=== PATIENT | female | born 1935 | race Caucasian/White ===

== ENCOUNTER 2019-10-29 17:04 | Emergency (ER) | payer MEDICARE, OTHER ==
[2019-10-29 18:10] LABS: ALBUMIN 3.8 g/dL (3.5-5.0); ALKALINE PHOSPHATASE 66 U/L (38-126); ANION GAP 6 (5-19); ASPARTATE AMINO TRANSFERASE 36 U/L (14-36); BILIRUBIN,TOTAL 0.7 mg/dL (0.2-1.3); BLOOD UREA NITROGEN 38 mg/dL (7-20); CALCIUM 9.8 mg/dL (8.4-10.2); CARBON DIOXIDE 37 mmol/L (22-30); CHLORIDE 96 mmol/L (98-107); CREATINE KINASE 22 U/L (30-135); GLUCOSE 89 mg/dL (75-110); POTASSIUM 4.5 mmol/L (3.6-5.0); TOTAL PROTEIN 6.5 g/dL (6.3-8.2)
[2019-10-29 18:23] LABS: ABSOLUTE EOSINOPHILS # (AUTO) 0.4 10^3/uL (0.0-0.6); ABSOLUTE LYMPHOCYTES (AUTO) 2.4 10^3/uL (0.5-4.7); ABSOLUTE MONOCYTES (AUTO) 0.4 10^3/uL (0.1-1.4); ABSOLUTE NEUT (AUTO) 4.9 10^3/uL (1.7-8.2); BASOPHILS % (AUTO) 0.6 % (0-2); EOSINOPHILS % (AUTO) 5.4 % (0-6); HEMATOCRIT 44.5 % (36.0-47.0); HEMOGLOBIN 14.5 g/dL (12.0-15.5); LYMPHOCYTES % (AUTO) 29.5 % (13-45); MEAN CORPUSCULAR HEMOGLOBIN 31.8 pg (27.0-33.4); MEAN CORPUSCULAR HGB CONC 32.7 g/dL (32.0-36.0); MEAN CORPUSCULAR VOLUME 97 fl (80-97); MONOCYTES % (AUTO) 5.2 % (3-13); PLATELET COUNT 238 10^3/uL (150-450); RED BLOOD COUNT 4.57 10^6/uL (3.72-5.28); RED CELL DISTRIBUTION WIDTH 15.1 % (11.5-14.0); SEGMENTED NEUTROPHILS % (AUTO) 59.3 % (42-78); TOTAL CELLS COUNTED % (AUTO) 100 %; WHITE BLOOD COUNT 8.2 10^3/uL (4.0-10.5)
--- NOTE | 2019-10-29 18:24 | EKG REPORT ---
SEVERITY:- ABNORMAL ECG - PROBABLE ATRIAL FIBRILLATION, V-RATE 88-117 LOW VOLTAGE THROUGHOUT CONSIDER ANTERIOR INFARCT : Confirmed by: Roshan Medina MD 29-Oct-2019 18:23:41
[2019-10-29 18:28] LABS: CREATINE KINASE MB 0.94 ng/mL (<4.55); TROPONIN I < 0.012 ng/mL
--- NOTE | 2019-10-29 18:36 | RADIOLOGY REPORT (SQ) ---
EXAM DESCRIPTION: CHEST SINGLE VIEW IMAGES COMPLETED DATE/TIME: 10/29/2019 5:06 pm REASON FOR STUDY: sob COMPARISON: None. EXAM PARAMETERS: NUMBER OF VIEWS: One view. TECHNIQUE: Single frontal radiographic view of the chest acquired. RADIATION DOSE: NA LIMITATIONS: None. FINDINGS: LUNGS AND PLEURA: Lungs are hyperinflated. No focal consolidation or pleural effusion. N o pneumothorax. MEDIASTINUM AND HILAR STRUCTURES: No masses. Contour normal. HEART AND VASCULAR STRUCTURES: Moderate cardiomegaly. No pulmonary vascular congestion. BONES: Chronic healed left clavicle rib fracture. Osteoarthritis bilateral shoulders. HARDWARE: None in the chest. OTHER: No other significant finding. IMPRESSION: 1. No acute cardiopulmonary disease. 2. Hyperinflated lungs which can be seen with obstructive lung disease. TECHNICAL DOCUMENTATION: JOB ID: [id number] 2010 [employer]- All Rights Reserved Reading location - IP/workstation name: [email or web address]
--- NOTE | 2019-10-29 21:14 | ER Document Report ---
ED General - General Chief Complaint: Shortness Of Breath Stated Complaint: SHORTNESS OF BREATH Time Seen by Provider: 10/29/19 21:06 Primary Care Provider: ELVIA TAMEZ MD [Primary Care Provider] - Follow up as needed Information source: Relative - Daughter Irina advises patient was on more than 1 pill of Lasix per day and this was increased to 2 and then recently was dropped back. The patient's BNP today is around 1000. Notes: 10/29/19 19:20 (created 10/29/19 21:09) - ED Nursing Note by SRIKANTH YOU Acct Num: [id number] : 1935 Patient Age: 84 Pt resting in stretcher, breaths even and unlabored on NC. Pt's daughter at bedside. Laba t bedside for re-draw. Pt has no needs or complaints at this time. Will continue to monitor 10/29/19 17:10 (created 10/29/19 18:01) - ED Nursing Note by MALAIKA XIONG Acct Num: [id number] : 1935 Patient Age: 84 Patient presents to the ED sent from [facility] for rule out of a PE. Patient reports she was discharged from [facility] Saturday for Shingles, UTI, and shortness of breath. Patient was following up at [facility] to evaluate for home oxygen usage. At appointment, Patient attempted to do a 6 minute walk multiple times and she had increased heart rate and decreased oxygen saturation with movement. Patient oxygen saturation got as low as the 60s per EMS. Upon EMS arrival, patient was noted to have blue hands and feet. Patient was placed on 4L NC O2 and sats improved to 94% for EMS. Upon arrival patient's oxygen saturation was 100%. Patient states she does have a history of COPD, AFib and HTN. Patient denies any pain at this time. Patient states home health came yesterday and she was having difficulty breathing then as well. Patient is alert and orientedx4, speaking in clear and complete sentences with no signs of distress noted at this time. my notes 84-year-old female arrives with chief complaint of shortness of breath with walking. She has STEWART. She reports her mother and father smoked when she was younger and her smoked for 20 years before he got leukemia. She however has never smoked or been a bariatric surgeon or had any lung injury. Patient was sent here by [facility] to rule out PE. CTA scan was read as negative around 2300 TRAVEL OUTSIDE OF THE [place] IN LAST 30 DAYS: No - HPI Onset: Just prior to arrival Onset/Duration: Sudden Quality of pain: No pain Severity: None Pain Level: Denies Associated symptoms: Shortness of breath Exacerbated by: Denies Relieved by: Denies Similar symptoms previously: No Recently seen / treated by doctor: No - Related Data Allergies/Adverse Reactions: codeine Allergy (Verified 10/29/19 17:31) Sulfa (Sulfonamide Antibiotics) Allergy (Verified 10/29/19 17:31) Past Medical History - Social History Smoking Status: Never Smoker Cigarette use (# per day): No Chew tobacco use (# tins/day): No Smoking Education Provided: No Frequency of alcohol use: Rare Drug Abuse: None Lives with: Family - Patient with daughter Irina Family History: Reviewed & Not Pertinent Patient has suicidal ideation: No Patient has homicidal ideation: No - Past Medical History Cardiac Medical History: Reports: Hx Atrial Fibrillation, Hx Hypertension Pulmonary Medical History: Reports: Hx COPD Past Surgical History: Reports: Hx Appendectomy, Hx Cholecystectomy, Hx Ge nitourinary Surgery - hysterectomy, Hx Orthopedic Surgery - neck, back, right hip Review of Systems - Review of Systems Constitutional: See HPI, Weakness, Other - Patient feels cold all the time and her hands and feet. This history is from daughter who is in the room. EENT: No symptoms reported Cardiovascular: No symptoms reported Respiratory: See HPI, Other - stewart Gastrointestinal: No symptoms reported Genitourinary: No symptoms reported Female Genitourinary: No symptoms reported Musculoskeletal: No symptoms reported Skin: No symptoms reported Hematologic/Lymphatic: No symptoms reported Neurological/Psychological: No symptoms reported Physical Exam - Vital signs Vitals: BP 108/70 10/29/19 17:21 Interpretation: Normal - General General appearance: Appears well - HEENT Head: Normocephalic, Atraumatic Eyes: Normal Pupils: PERRL Sinus: Normal Nasal: Normal Mouth/Lips: Normal Mucous membranes: Normal Pharynx: Normal Neck: Normal - Respiratory Respiratory status: No respiratory distress Chest status: Nontender Breath sounds: Normal Chest palpation: Normal - Cardiovascular Rhythm: Regular Heart sounds: Normal auscultation Murmur: No - Abdominal Inspection: Normal Distension: No distension Bowel sounds: Normal Tenderness: Nontender Organomegaly: No organomegaly - Rectal Hemorrhoids: Other - deferred - Genitourinary Bimanuel exam: Other - deferred - Back Back: Normal - Extremities General upper extremity: Normal inspection, Other - Full radial pulses full capillary refill less than 2 seconds General lower extremity: Normal inspection, Other - Positive sensation and capillary refill and positive dorsalis pedis but cool to touch and therefore patient has socks on - Neurological Neuro grossly intact: Yes Cognition: Normal Orientation: AAOx4 Chauvin Coma Scale Eye Opening: Spontaneous Nando Coma Scale Verbal: Oriented Chauvin Coma Scale Motor: Obeys Commands Chauvin Coma Scale Total: 15 Speech: Normal Motor strength normal: LUE, RUE, LLE, RLE Sensory: Normal - Psychological Associated symptoms: Normal affect - Skin Skin Temperature: Warm Skin Moisture: Dry Course - Vital Signs Vital signs: Temp Pulse Resp BP Pulse Ox 97.9 F 16 113/82 100 10/29/19 20:30 10/29/19 23:01 10/29/19 23:01 10/29/19 23:01 - Laboratory Result Diagrams: 10/29/19 17:25 10/29/19 17:25 Laboratory results interpreted by me: 10/29/19 10/29/19 10/29/19 17:25 17:25 17:25 RDW 15.1 H Chloride 96 L Carbon Dioxide 37 H BUN 38 H Est GFR ( Amer) 58 L Est GFR (MDRD) Non-Af 48 L Creatine Kinase 22 L NT-Pro-B Natriuret Pep 1090 H Urine Ascorbic Acid 10/29/19 22:10 RDW Chloride Carbon Dioxide BUN Est GFR ( Amer) Est GFR (MDRD) Non-Af Creatine Kinase NT-Pro-B Natriuret Pep Urine Ascorbic Acid 40 H - Diagnostic Test Radiology reviewed: Reports reviewed Discharge - Discharge Clinical Impression: STEWART (dyspnea on exertion) COPD (chronic obstructive pulmonary disease) Qualifiers: COPD type: unspecified COPD Qualified Code(s): J44.9 - Chronic obstructive pulm onary disease, unspecified CHF (congestive heart failure) Qualifiers: Heart failure type: unspecified Heart failure chronicity: acute Qualified Code(s): I50.9 - Heart failure, unspecified Condition: Good Disposition: HOME, SELF-CARE Additional Instructions: Follow-up with pulmonology as planned return to ER as needed take medicines as directed. Try to take one half B complex vitamin pill daily with meal in order to increase niacin and warm your hands and feet up. They may help you with your breathing as well. We will try also Zaroxolyn 2.5 mg tablets daily for 3 days. Continue with your Lasix. Prescriptions: Metolazone [Zaroxolyn 2.5 Mg Tablet] 2.5 mg PO DAILY #3 tablet Referrals: ELVIA TAMEZ MD [Primary Care Provider] - Follow up as needed
[2019-10-29 22:28] LABS: APPEARANCE,URINE CLEAR; BILIRUBIN,URINE NEGATIVE (NEGATIVE); COLOR,URINE YELLOW; GLUCOSE, URINE NEGATIVE (NEGATIVE); KETONES,URINE NEGATIVE (NEGATIVE); LEUKOCYTE ESTERASE,URINE NEGATIVE (NEGATIVE); NITRITE,URINE NEGATIVE (NEGATIVE); PROTEIN,URINE NEGATIVE (NEGATIVE); URINE SPECIFIC GRAVITY 1.016; UROBILINOGEN,URINE NEGATIVE mg/dL (<2.0)
--- NOTE | 2019-10-29 23:19 | RADIOLOGY REPORT (SQ) ---
CT CHEST ANGIOGRAPHY WITHOUT THEN WITH IV CONTRAST HISTORY: Shortness of breath. COMPARISON: None. TECHNIQUE: CT angiogram of the chest with IV contrast. 3-D MIP images were obtained in coronal and sagittal reconstructions. This exam was performed according to our departmental dose-optimization program, which includes automated exposure control, adjustment of the mA and/or kV according to patient size and/or use of iterative reconstruction technique. FINDINGS: No filling defects are identified in the pulmonary trunk, main left and right pulmonary arteries, or the segmental branches. The thyroid gland is normal. No mediastinal or hilar adenopathy. The heart size is normal without pericardial effusion. The thoracic aorta is normal caliber. No consolidation, pleural effusion, or pneumothorax is identified. There is mild atelectasis in the posterior lung bases. The visualized upper abdomen demonstrates no acute findings. No acute osseous findings are seen. IMPRESSION: No acute pulmonary embolism.
[2019-10-30] MEDS ORDERED: METOLAZONE 2.5 MG TABLET PO ONE (00:10)
[2019-10-30] MEDS ORDERED: METOLAZONE 2.5 MG TABLET ONE (00:24)
[2019-10-30 00:55] VITALS: BP 116/70
[2019-10-30] MEDS ORDERED: GABAPENTIN 300 MG CAPSULE PO ONE (00:57)
[2019-10-30] MEDS ORDERED: TRAMADOL HCL 50 MG TABLET PO ONE (00:57)
== END 2019-10-30 01:06 | disposition home or self-care (01) ==
LOC: ER 17:04
DX: J44.9 Chronic obstructive pulmonary disease, unspecified (principal); I11.0 Hypertensive heart disease with heart failure; I50.9 Heart failure, unspecified; R06.02 Shortness of breath; R53.1 Weakness; Z88.6 Allergy status to analgesic agent; Z88.5 Allergy status to narcotic agent; Z88.2 Allergy status to sulfonamides
CPT/HCPCS: 93005; 99285; 36415; 82553; 82550; 85025; 80053; 81001; 84484; 85379; 83880; 71045; 71275; 93010; A9270 ×3; J3490

== ENCOUNTER 2020-03-14 01:07 | Emergency (ER) | payer MEDICARE ==
--- NOTE | 2020-03-14 01:32 | ER Document Report ---
ED General - General Chief Complaint: High Blood Sugar Stated Complaint: HIGH BLOOD SUGAR Time Seen by Provider: 03/14/20 01:18 Primary Care Provider: ELVIA TAMEZ MD [Primary Care Provider] - 03/14/20 Notes: Patient is an 85-year-old female who comes emergency department for chief complaint of behaving sluggish, lethargic, and less responsive than usual. Patient lives at home with her daughter, daughter called EMS. EMS noted that patient appeared alert, responsive, oriented, however they checked her blood cutler gar and it was reading "HI", she does not have a history of diabetes, the decided to bring her to the emergency department as result. Patient admits to some coughing and wheezing but states this is not significantly changed from her baseline. She is supposed to see pulmonology tomorrow for monitoring. She denies headache, chest pain, fever, sore throat, focal numbness or weakness, or any current complaints. Past medical history of atrial fibrillation, hypertension, COPD, hypothyroidism. TRAVEL OUTSIDE OF THE [place] IN LAST 30 DAYS: No - Related Data Allergies/Adverse Reactions: codeine Allergy (Verified 10/29/19 17:31) Sulfa (Sulfonamide Antibiotics) Allergy (Verified 10/29/19 17:31) Past Medical History - General Information source: Patient, Relative - Social History Smoking Status: Former Smoker Frequency of alcohol use: None Drug Abuse: None Lives with: Family Family History: Reviewed & Not Pertinent - Past Medical History Cardiac Medical History: Reports: Hx Atrial Fibrillation, Hx Hypertension Pulmonary Medical History: Reports: Hx COPD Past Surgical History: Reports: Hx Appendectomy, Hx Cholecystectomy, Hx Genitourinary Surgery - hysterectomy, Hx Orthopedic Surgery - neck, back, right hip - Immunizations Immunizations up to date: Yes Hx Diphtheria, Pertussis, Tetanus Vaccination: Yes Review of Systems - Review of Systems Constitutional: See HPI EENT: No symptoms reported Cardiovascular: No symptoms reported Respiratory: No symptoms reported Gastrointestinal: No symptoms reported Genitourinary: No symptoms reported Female Genitourinary: No symptoms reported Musculoskeletal: No symptoms reported Skin: No symptoms reported Hematologic/Lymphatic: No symptoms reported Neurological/Psychological: See HPI Physical Exam - Vital signs Vitals: Pulse Ox 94 03/14/20 01:14 - Notes Notes: GENERAL: Alert, interacts well. No acute distress. HEAD: Normocephalic, atraumatic. EYES: Pupils equal, round, and reactive to light. Extraocular movements intact. ENT: Oral mucosa moist, tongue midline. Oropharynx unremarkable. Airway patent. NECK: Full range of motion. Supple. Trachea midline. No lymphadenopathy. LUNGS: Mildly decreased breath sounds bilaterally, expiratory wheezes scattered throughout, speaks in full sentences, no labored breathing, no tachypnea HEART: Regular rate and rhythm. No murmur ABDOMEN: Soft, non-tender. Non-distended. EXTREMITIES: Moves all 4 extremities spontaneously. No edema, normal radial and dorsalis pedis pulses bilaterally. No cyanosis. BACK: no cervical, thoracic, lumbar midline tenderness. No saddle anesthesia, normal distal neurovascular exam. Moves all extremities in full range of motion. NEUROLOGICAL: Alert and oriented x3. Normal speech. Cranial nerves II through XII grossly intact. Strength 5/5 in all extremities. PSYCH: Normal affect, normal mood. SKIN: Warm, dry, normal turgor. No rashes or lesions noted. Course - Re-evaluation Re-evalutation: Patient is very alert, talkative, making jokes, states she does not want to be here. She has slight expiratory wheezes and was given a DuoNeb. She did have slight improvement after single DuoNeb. CBC, chemistry unremarkable, specifical ly glucose unremarkable, I suspect that there was an error with the EMS Accu- Chek machine. Urinalysis unremarkable, troponin and EKG unremarkable, chest x- ray without acute changes. CT of the head unremarkable. Venous blood gas shows very borderline pH of 7.26, somewhat elevated CO2 at 69.7. Unfortunately I do not have a comparison. I discussed with daughter, daughter states patient is referred to pulmonology and has a follow-up this morning. She states that if the work-up is fine patient is currently at baseline and she has no other concerns. Patient is also being evaluated for potentially wearing oxygen at all times. I discussed with Dr. Calzada. I do not know what patient's chronic baseline is but I suspect she has chronic respiratory failure based on her report and daughter's report and I suspect her VBG is very close to baseline. He agrees that if patient is at her baseline mental status per daughter and she has no complaints, and if she is oriented and alert, that she can safely follow-up with pulmonology this morning as planned. I discussed this with patient and daughter, discussed return precautions. They state appreciation and agreement. Stable and well-appearing at time of discharge. - Vital Signs Vital signs: Temp Pulse Resp BP Pulse Ox 97.9 F 17 128/72 H 91 L 03/14/20 02:31 03/14/20 05:01 03/14/20 05:01 03/14/20 05:01 - Laboratory Result Diagrams: 03/14/20 01:48 03/14/20 01:48 Laboratory results interpreted by me: 03/14/20 03/14/20 03/14/20 01:48 01:48 01:48 MCV 98 H RDW 14.2 H VBG pH 7.29 L VBG pCO2 68.7 H* VBG HCO3 32.1 H Carbon Dioxide 35 H BUN 29 H Est GFR ( Amer) 55 L Est GFR (MDRD) Non-Af 46 L Urine Blood 03/14/20 04:10 MCV RDW VBG pH VBG pCO2 VBG HCO3 Carbon Dioxide BUN Est GFR ( Amer) Est GFR (MDRD) Non-Af Urine Blood SMALL H - EKG Interpretation by Me Additional EKG results interpreted by me: EKG shows atrial fibrillation at a rate of 89, borderline prolonged QT interval at 47, normal axis, no T wave inversions or ST segment changes in consecutive leads Discharge - Discharge Clinical Impression: Transient alteration of awareness, Wheezing Condition: Stable Disposition: HOME, SELF-CARE Additional Instructions: The work-up including chest x-ray, CAT scan of the head, laboratory work-up does not show concerning new findings. 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 Return if she worsens including developing fever, difficulty breathing, passing out, confusion, or any other concerning symptoms. Referrals: ELVIA TAMEZ MD [Primary Care Provider] - 03/14/20
[2020-03-14 02:02] LABS: ABSOLUTE EOSINOPHILS # (AUTO) 0.4 10^3/uL (0.0-0.6); ABSOLUTE LYMPHOCYTES (AUTO) 2.8 10^3/uL (0.5-4.7); ABSOLUTE MONOCYTES (AUTO) 0.5 10^3/uL (0.1-1.4); BASOPHILS % (AUTO) 0.6 % (0-2); EOSINOPHILS % (AUTO) 5.2 % (0-6); HEMATOCRIT 43.5 % (36.0-47.0); HEMOGLOBIN 14.3 g/dL (12.0-15.5); LYMPHOCYTES % (AUTO) 36.5 % (13-45); MEAN CORPUSCULAR HEMOGLOBIN 32.4 pg (27.0-33.4); MEAN CORPUSCULAR HGB CONC 32.9 g/dL (32.0-36.0); MEAN CORPUSCULAR VOLUME 98 fl (80-97); MONOCYTES % (AUTO) 6.5 % (3-13); PLATELET COUNT 210 10^3/uL (150-450); RED BLOOD COUNT 4.42 10^6/uL (3.72-5.28); RED CELL DISTRIBUTION WIDTH 14.2 % (11.5-14.0); SEGMENTED NEUTROPHILS % (AUTO) 51.2 % (42-78); TOTAL CELLS COUNTED % (AUTO) 100 %; WHITE BLOOD COUNT 7.7 10^3/uL (4.0-10.5)
[2020-03-14 02:09] LABS: VENOUS BLOOD BASE EXCESS 3.2 mmol/L; VENOUS BLOOD HCO3 32.1 mmol/L (20-32); VENOUS BLOOD PH 7.29 (7.30-7.42)
[2020-03-14 02:12] LABS: VENOUS BLOOD PCO2 68.7 mmHg (35-63)
[2020-03-14 02:18] LABS: ALBUMIN 4.4 g/dL (3.5-5.0); ALKALINE PHOSPHATASE 74 U/L (38-126); ANION GAP 8 (5-19); ASPARTATE AMINO TRANSFERASE 35 U/L (14-36); BILIRUBIN,DIRECT 0.3 mg/dL (0.0-0.4); BILIRUBIN,TOTAL 0.9 mg/dL (0.2-1.3); BLOOD UREA NITROGEN 29 mg/dL (7-20); CALCIUM 9.4 mg/dL (8.4-10.2); CARBON DIOXIDE 35 mmol/L (22-30); CHLORIDE 98 mmol/L (98-107); GLUCOSE 88 mg/dL (75-110); POTASSIUM 4.3 mmol/L (3.6-5.0); TOTAL PROTEIN 7.6 g/dL (6.3-8.2)
[2020-03-14] MEDS ORDERED: IPRATROPIUM/ALBUTEROL 0.5-2.5 MG/3 ML AMPUL NEB ONE (02:18)
--- NOTE | 2020-03-14 02:42 | RADIOLOGY REPORT (SQ) ---
CLINICAL HISTORY: lethargy COMPARISON: None. 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 FINDINGS: There is no acute hemorrhage, mass effect or midline shift. Garcia-white differentiation is preserved. There is no hydrocephalus. There is no significant volume loss for age. The calvarium is intact. Orbits and globes are unremarkable. The paranasal sinuses are clear. Mastoid air cells are clear. IMPRESSION: No acute intracranial findings.
--- NOTE | 2020-03-14 03:01 | RADIOLOGY REPORT (SQ) ---
EXAM DESCRIPTION: X-ray single view chest. CLINICAL HISTORY: 85 years Female, lethargy, wheezing COMPARISON: Chest x-ray and chest CT performed on 10/29/2019 TECHNIQUE: Single portable x-ray view of the chest performed on 03/14/2020 at 2:13 AM FINDINGS: The lungs are well expanded and are clear. There is no evidence of a pneumothorax. Cardiac silhouette is stable and mildly prominent. The mediastinal contours are normal. No acute osseous abnormality is identified. No focal soft tissue abnormalities are seen. Lines and tubes: None. IMPRESSION: No evidence of acute intrathoracic disease.
[2020-03-14 04:37] LABS: APPEARANCE,URINE SLIGHTLY-CLOUDY; BILIRUBIN,URINE NEGATIVE (NEGATIVE); COLOR,URINE YELLOW; GLUCOSE, URINE NEGATIVE (NEGATIVE); KETONES,URINE NEGATIVE (NEGATIVE); LEUKOCYTE ESTERASE,URINE NEGATIVE (NEGATIVE); NITRITE,URINE NEGATIVE (NEGATIVE); PROTEIN,URINE NEGATIVE (NEGATIVE); URINE SPECIFIC GRAVITY 1.012; UROBILINOGEN,URINE NEGATIVE mg/dL (<2.0)
[2020-03-14 05:28] VITALS: BP 128/72
--- NOTE | 2020-03-14 06:37 | EKG REPORT ---
SEVERITY:- ABNORMAL ECG - ATRIAL FIBRILLATION RIGHT AXIS DEVIATION CONSIDER ANTERIOR INFARCT BORDERLINE PROLONGED QT INTERVAL : Confirmed by: Snuil Childers MD 14-Mar-2020 06:37:06
== END 2020-03-14 05:35 | disposition home or self-care (01) ==
LOC: ER 01:07
DX: R40.4 Transient alteration of awareness (principal); R06.2 Wheezing; R53.83 Other fatigue; R73.9 Hyperglycemia, unspecified; R05 Cough; I48.91 Unspecified atrial fibrillation; I10 Essential (primary) hypertension; J44.9 Chronic obstructive pulmonary disease, unspecified; E03.9 Hypothyroidism, unspecified; Z88.2 Allergy status to sulfonamides; Z87.891 Personal history of nicotine dependence
CPT/HCPCS: 36415; 70450; 71045; 80053; 81001; 82803; 82962; 84484; 85025; 87086; 93005; 93010; 94640; 99285